=== PATIENT | female | born 1970 | race Asian ===

== ENCOUNTER 2018-11-01 08:28 | Inpatient (IN) | payer BC, OTHER ==
[~2018-11-01] VITALS: Ht 154.9 cm; Wt 101.0 kg
[~2018-11-01 08:28] MED LIST: ACET500T98 PO
[2018-11-01] MEDS ORDERED: HYDROCODONE/APAP (5/325) TAB PO ONE (09:00)
[2018-11-01] MEDS ORDERED: CEFAZOLIN 1 GM/50 ML (PMX) 50 ML IVPB SCH (09:30)
--- NOTE | 2018-11-01 09:43 | ERD ---
ER Documentation Chief Complaint Chief Complaint left forearm pain and deformity from a fall outstretched hand. good DP HPI 48-year-old entyn-ajqq-[id number] female presents the emergency department complaining of left upper extremity pain. Patient was in her usual state of health until just prior to arrival which time she excellently fell off a chair. Since then, she is been describing left forearm pain. She reports no numbness, tingling, loss of function. Patient reports no other traumatic complaints or medical complaints at this time. ROS All systems reviewed and are negative except as per history of present illness. Medications Home Meds Reported Medications Acetaminophen (Tylenol) 500 Mg Tab, 500 MG PO PRN 01/01/12 Allergies Allergies: Coded Allergies: No Known Allergies (Verified Allergy, Unknown, 12/06/11) PMhx/Soc History of Surgery: Yes (C SECTION, PRITESH CATH PLACEMENT ) Anesthesia Reaction: No Hx Neurological Disorder: No Hx Respiratory Disorders: No Hx Cardiac Disorders: Yes (HIGH CHOLESTEROL) Hx Psychiatric Problems: No Hx Miscellaneous Medical Probl: No Hx Alcohol Use: No Hx Substance Use: No Hx Tobacco Use: No Smoking Status: Never smoker FmHx Noncontributory for chief complaint with supportive family at bedside Physical Exam Vitals Vital Signs Date Temp Pulse Resp B/P (MAP) Pulse Ox O2 O2 Flow FiO2 Time Delivery Rate 11/01/18 66 136/75 99 Room Air 08:49 (95) 11/01/18 98.0 65 18 156/72 99 08:32 (100) Physical Exam General: Well developed, well nourished in no acute distress HEENT: Scalp atraumatic with no laceration or evidence of skull fracture; no signs of basilar skull fracture. Face symmetric, stable and atraumatic Neck: Full range of motion without discomfort or neurologic symptoms, no midline cervical spine tenderness, step-off, or evidence of significant trauma CV: Regular rate, rhythm, no murmurs appreciated Lungs: Clear to auscultation bilaterally with no chest wall trauma appreciated, chest wall stable with no crepitus Abdomen: Soft, atraumatic and non-tender in all 4 quadrants Extremities: Left upper extremity has significant tenderness to palpation at the midshaft forearm. Remainder of the extremities appear to be normal. On the left upper extremity, patient is neurovascular intact. Compartments soft and compressible. Patient is a 1 cm laceration over the apex of the fracture site with no active bleeding. Back: No thoracic or lumbar midline tenderness, no step-off or evidence of significant trauma Neurologic: Awake, alert and oriented, pupils equal, round and reactive to light, face symmetric, tongue midline, moving all extremities with equal and normal strength, sensory exam grossly non-focal Result Diagram: 11/01/18916 Results 24 hrs Laboratory Tests Test 11/01/18 09:17 White Blood Count 9.7 10^3/ul Red Blood Count 4.62 10^6/ul Hemoglobin 14.1 g/dl Hematocrit 41.5 % Mean Corpuscular Volume 89.8 fl Mean Corpuscular Hemoglobin 30.5 pg Mean Corpuscular Hemoglobin Concent 34.0 g/dl Red Cell Distribution Width 11.4 % Platelet Count 251 10^3/UL Mean Platelet Volume 10.5 fl Immature Granulocytes % 0.300 % Neutrophils % 67.7 % Lymphocytes % 23.7 % Monocytes % 6.9 % Eosinophils % 1.1 % Basophils % 0.3 % Nucleated Red Blood Cells % 0.0 /100WBC Immature Granulocytes # 0.030 10^3/ul Neutrophils # 6.6 10^3/ul Lymphocytes # 2.3 10^3/ul Monocytes # 0.7 10^3/ul Eosinophils # 0.1 10^3/ul Basophils # 0.0 10^3/ul Nucleated Red Blood Cells # 0.0 10^3/ul Current Medications Medications Dose Sig/Blu Start Time Status Last (Trade) Ordered Route PRN Stop Time Admin Dose Reason Admin 1 tab ONCE ONCE 11/01/18 DC 11/01/18 Acetaminophen PO 09:00 08:55 / 11/01/18 09:01 Hydrocodone Bitart ([place] (5/325)) Cefazolin 50 ml @ ONCE IVPB 11/01/18 11/01/18 Sodium 100 mls/hr 09:30 09:22 11/01/18 09:59 Ondansetron 4 mg BRIDGE ORDER 11/01/18 HCl (Zofran PRN IV 10:00 Inj) NAUSEA/VOMITI 11/02/18 09:59 NG 650 mg ER BRIDGE 11/01/18 Acetaminophen PRN PO 10:00 (Tylenol .MILD PAIN 11/02/18 09:59 Tab) 1-3 OR TEMP Procedures/MDM Patient was taken to a room, seen and evaluated. Comfort measures were initiated. Diagnostic tests were ordered and reviewed. 3 LEAD RHYTHM STRIP: Normal sinus rhythm without ectopy RADIOLOGY: Reviewed with the radiologist CONSULTATION: Hospitalist was notified for admission. Orthopedic consultation was obtained Procedure: Wound care Laceration was cleaned and a dressing was applied. Antibiotics were initiated. Procedure: Immobilization Patient was placed into a shoulder sling immobilizing the midshaft forearm REEVALUATION: Patient remained neurovascular intact with the pain adequately controlled MEDICAL DECISION MAKIN-year-old brujc-rggz-[id number] female presents with an open midshaft fracture of her left forearm. Patient's been prescribed pain medication and antibiotics. Patient will be admitted to the hospital for surgical washout and immobilization. Departure Diagnosis: Primary Impression: Open fracture of left forearm Condition: MARCO Stuart Nov 01, 2018 09:43
[2018-11-01] MEDS ORDERED: ONDANSETRON 4 MG INJ IV PRN (10:00)
[2018-11-01] MEDS ORDERED: ACETAMINOPHEN 325 MG TAB PO PRN (10:00)
[2018-11-01] MEDS ORDERED: METF500T24 PO (10:41)
[2018-11-01] MEDS ORDERED: CITA20TA8 PO (10:42)
[2018-11-01] MEDS ORDERED: PRAV40TA76 PO (10:42)
[2018-11-01] MEDS ORDERED: ERGO500013 PO (10:43)
[2018-11-01 11:30] VITALS: BP 128/59; RESP 17
--- NOTE | 2018-11-01 11:51 | PREOPHP ---
DATE OF ADMISSION: 11/01/2018 CHIEF COMPLAINT: Fall with left forearm pain. HISTORY OF PRESENT ILLNESS: A 48-year-old female with unremarkable past medical history except diet controlled type 2 diabetes mellitus, presented to Emergency Room with complaint of left forearm pain. The patient climbed up a chair that was broken. She had a ground level fall. Initial evaluation r evealed open left forearm fracture. There was a laceration that was clean and dressed in the Emergen cy Room. Antibiotics were initiated. Orthopedic consultation was requested. PAST MEDICAL HISTORY: Diet-controlled diabetes mellitus. PAST SURGICAL HISTORY: Status post . SOCIAL HISTORY: Patient lives at home. Her daughter was at the bedside. The patient denies tobacco or alcohol use. PHYSICAL EXAMINATION: GENERAL: Well-developed, well-nourished female who is in no apparent distress. VITAL SIGNS: Stable. She is afebrile. HEENT: Extraocular muscles intact. Pupils equal and reactive to light bilaterally. Sclerae are ani cteric. Oropharynx is clear and moist. NECK: Supple, no JVD, no carotid bruits. LUNGS: Clear to auscultation bilaterally. CARDIAC: Regular rate and rhythm. No murmurs or gallops. ABDOMEN: Soft, nontender, nondistended, normoactive bowel sounds. EXTREMITIES: Left upper extremity in sling. Mid forearm is quite tender to palpation. There was a 1 cm laceration over the area of the fracture. ASSESSMENT: 1. A 48-year-old female with open midshaft left forearm fracture. 2. Diet controlled type 2 diabetes mellitus. 3. Hyperlipidemia. PLAN: 1. Admit to med/surg. 2. Keep n.p.o. 3. Pain control. 4. Continue IV antibiotics. 5. Orthopedic follow up for surgical intervention. Dictated By: INESSA SERNA/PIERRE Conf#: [id number] DID#: [id number]
[2018-11-01 12:36] VITALS: Ht 154.9 cm; Wt 101.0 kg
[2018-11-01] MEDS: DEXTROSE 5%-0.45% NACL 1,000 ML IV SCH (13:02)
[2018-11-01] MEDS ORDERED: CEFAZOLIN 1 GM INJ IVPB SCH (14:00)
[2018-11-01 14:27] VITALS: BP 136/72; PULSE 74; RESP 18
[2018-11-01] MEDS: morphine 2 MG INJ IV PRN ×2 (14:29→22:31)
[2018-11-01] MEDS: CEFAZOLIN 1 GM/50 ML (PMX) 50 ML IVPB SCH ×2 (15:48→22:30)
--- NOTE | 2018-11-01 19:36 | CONS ---
Assessment/Plan Assessment/Plan Hospital Course (Demo Recall) 48-year-old female with history of diabetes type 2 and endometrial cancer sustained a type I both bone forearm fracture to the left forearm. Antibiotics were started in the emergency department. Her tetanus was updated. I discussed with the patient that she will need an irrigation debridement secondary to the open nature of the fracture and open reduction internal fixation of both the r adius and ulna. Given that this is a type I open fracture and was in a clean environment and antibiotics were started on arrival the case will be delayed till tomorrow morning secondary to or availability today. This should not pose any significant increased risks of infection. Discussed benefits and risks of open reduction internal fixation and irrigation debridement of the left open both bone forearm fracture with the patient. Risks include but not limited to medical complications, anesthetic complications, cardiopulmonary complications, infection, nonunion, malunion, hardware failure, neurovascular injury, need for repeat surgery, symptomatic hardware, and stiffness. She understood these benefits and risks and wished to proceed with surgery. Plan: Continue Ancef 2 g every 8 hours until 48 hours after surgery Skin splint left upper arm Ice Elevate Pain control N.p.o. at midnight Surgery 11/02 in the morning Assessment/Plan (Daily) Procedure: Long arm splint left upper extremity: The left upper extremity was wrapped in Webril followed by a posterior slab fiberglass splint immobilizing the wrist elbow and ending the proximal humerus. This was covered in Nicola wrap. Consultation Date/Type/Reason Admit Date/Time Nov 01, 2018 at 12:29 Date of Consultation: Nov 01, 2018 Reason for Consultation Open left both bone forearm fracture Date/Time of Note DATE: 11/01/18 TIME: 19:29 Hx of Present Illness 48-year-old female fell off a chair earlier today. She had severe pain and deformity and presented to the emergency department. She was found to have a left both bone forearm fracture. She was found to have an open area of the skin near the ulna. Antibiotics were started in the emergency department. Tetanus was updated. Patient denies numbness and tingling. Denies previous injury to this arm. Patient denies fever, chills, shortness of breath, chest pain, nausea/vomiting, constipation, diarrhea, numbness, and tingling. Past Medical History Diabetes mellitus type 2 Endometrial cancer status post hysterectomy and oophorectomy Home Meds Reported Medications Ergocalciferol (Vitamin D2) (VITAMIN D2) 50,000 Unit Capsule, 07240 UNIT PO Q SUN, CAP 11/01/18 Citalopram Hydrobromide* (Citalopram Hydrobromide*) 20 Mg Tablet, 20 MG PO DAILY, #30 TAB 11/01/18 Pravastatin Sodium* (Pravastatin Sodium*) 40 Mg Tablet, 40 MG PO HS, TAB 11/01/18 Metformin Hcl* (Metformin Hcl*) 500 Mg Tablet, 500 MG PO WITH BREAKFAST, #30 TAB 11/01/18 Discontinued Reported Medications Acetaminophen (Tylenol) 500 Mg Tab, 500 MG PO PRN 01/01/12 Medications Current Medications Ondansetron HCl (Zofran Inj) 4 mg BRIDGE ORDER PRN IV NAUSEA/VOMITING; Start 11/01/18 at 10:00; Stop 11/02/18 at 09:59 Acetaminophen (Tylenol Tab) 650 mg ER BRIDGE PRN PO .MILD PAIN 1-3 OR TEMP; St art 11/01/18 at 10:00; Stop 11/02/18 at 09:59 Dextrose/Sodium Chloride 1,000 ml @ 100 mls/hr Q10H IV Last administered on 11/01/18at 13:02; Admin Dose 100 MLS/HR; Start 11/01/18 at 12:00 Morphine Sulfate (morphine) 2 mg Q3H PRN IV moderate pain Last administered on 11/01/18at 14:29; Admin Dose 2 MG; Start 11/01/18 at 12:00 Cefazolin Sodium 50 ml @ 100 mls/hr Q8 IVPB Last administered on 11/01/18at 15:48; Admin Dose 100 MLS/HR; Start 11/01/18 at 14:00 Allergies: Coded Allergies: No Known Allergies (Verified Allergy, Unknown, 11/01/18) Past Surgical History Past Surgical Hx: noncontributory Family History Significant Family History: no pertinent family hx Social History Smoking Status: Never smoker Drug Use: none Exam/Review of Systems Exam Vitals Vital Signs Date Temp Pulse Resp B/P (MAP) Pulse Ox O2 O2 Flow FiO2 Time Delivery Rate 11/01/18 98.4 74 18 136/72 96 Room Air 14:27 (93) Exam General: Awake, alert, in no acute distress, pleasant and cooperative Heart: regular rhythm Lungs: breathing comfortably, no tachypnea or dyspnea MUSCULOSKELETAL: Left upper extremity: There is swelling of the extremity. There is gross deformity of the forearm. There is a small 3 mm wound over the ulnar aspect of the midforearm. There is no tenderness palpation of the elbow humerus or shoulder. No tenderness palpation of the wrist or hand. Tenderness palpation over the forearm. Sensation intact to light touch in a median, ulnar, radial, and axillary distribution. Motor is intact in a median, ulnar, radial, anterior interosseous, and posterior interosseous nerve distribution. Radial and ulnar artery are +2. Wrist extension and flexion are intact. Compartments are soft. Results Result Diagram: 11/01/18 0917 11/01/18 0917 Results 24hrs Laboratory Tests Test 11/01/18 09:17 White Blood Count 9.7 Red Blood Count 4.62 Hemoglobin 14.1 Hematocrit 41.5 Mean Corpuscular Volume 89.8 Mean Corpuscular Hemoglobin 30.5 Mean Corpuscular Hemoglobin Concent 34.0 Red Cell Distribution Width 11.4 L Platelet Count 251 Mean Platelet Volume 10.5 H Immature Granulocytes % 0.300 Neutrophils % 67.7 Lymphocytes % 23.7 Monocytes % 6.9 Eosinophils % 1.1 Basophils % 0.3 Nucleated Red Blood Cells % 0.0 Immature Granulocytes # 0.030 Neutrophils # 6.6 Lymphocytes # 2.3 Monocytes # 0.7 Eosinophils # 0.1 Basophils # 0.0 Nucleated Red Blood Cells # 0.0 Prothrombin Time 12.4 Prothrombin Time Ratio 1.0 INR International Normalized Ratio 0.91 Activated Partial Thromboplast Time 27.5 Sodium Level 143 Potassium Level 4.2 Chloride Level 104 Carbon Dioxide Level 30 Anion Gap 9 Blood Urea Nitrogen 15 Creatinine 0.59 Est Glomerular Filtrat Rate mL/min > 60 Glucose Level 125 Calcium Level 9.2 Imaging Imaging 3 views of the left wrist, 2 views of the left forearm, 3 views of the left elbow were personally reviewed. Wrist and elbow films are negative. Form film shows an acute 100% displaced midshaft fracture of the ulna and midshaft/proximal third shaft fracture of the radius. There is a couple centim eters of shortening. Medications Medication Current Medications Ondansetron HCl (Zofran Inj) 4 mg BRIDGE ORDER PRN IV NAUSEA/VOMITING; Start at 10:00; Stop 11/02/18 at 09:59 Acetaminophen (Tylenol Tab) 650 mg ER BRIDGE PRN PO .MILD PAIN 1-3 OR TEMP; Start 11/01/18 at 10:00; Stop 11/02/18 at 09:59 Dextrose/Sodium Chloride 1,000 ml @ 100 mls/hr Q10H IV Last administered on 11/01/18at 13:02; Admin Dose 100 MLS/HR; Start 11/01/18 at 12:00 Morphine Sulfate (morphine) 2 mg Q3H PRN IV moderate pain Last administered on 11/01/18at 14:29; Admin Dose 2 MG; Start 11/01/18 at 12:00 Cefazolin Sodium 50 ml @ 100 mls/hr Q8 IVPB Last administered on 11/01/18at 15:48; Admin Dose 100 MLS/HR; Start 11/01/18 at 14:00 JAKE BAILEY MD Nov 01, 2018 19:36
[2018-11-01 20:09] VITALS: BP 129/68; PULSE 70; RESP 16
[2018-11-02] VITALS (35 sets, daily range): BP systolic 114–157; BP diastolic 54–89; PULSE 82–104; RESP 16–26
[2018-11-02] MEDS: DEXTROSE 5%-0.45% NACL 1,000 ML IV SCH ×3 (00:15→18:00)
[2018-11-02] MEDS: CEFAZOLIN 1 GM/50 ML (PMX) 50 ML IVPB SCH (05:45)
--- NOTE | 2018-11-02 09:24 | HPN ---
Date/Time of Note Date/Time of Note DATE: 11/02/18 TIME: 09:23 Interval H&P Admission Note Pt. seen H&P reviewed: No system changes Patient denies fever, chills, shortness of breath, chest pain, nausea/vomiting, constipation, diarrhea, numbness, and tingling. MUSCULOSKELETAL: General: Awake, alert, in no acute distress, pleasant and cooperative Heart: regular rhythm Lungs: breathing comfortably, no tachypnea or dyspnea MUSCULOSKELETAL: Left upper extremity: Splint is intact. Sensation intact to light touch in a median, ulnar, radial, and axillary distribution. Motor is intact in a median, ulnar, radial, anterior interosseous, and posterior interosseous nerve distribution. Radial and ulnar artery are +2. Wrist extension and flexion are intact. Compartments are soft. JAKE BAILEY MD Nov 02, 2018 09:24
[2018-11-02] MEDS ORDERED: FENTAnyl 50 MCG/ML VIAL ONE (10:48)
[2018-11-02] MEDS ORDERED: MIDAZOLAM 1 MG/ML 2 ML INJ ONE (10:48)
[2018-11-02] MEDS ORDERED: PROPOFOL 20 ML ONE (10:48)
[2018-11-02] MEDS ORDERED: METOCLOPRAMIDE 10 MG INJ ONE (10:49)
[2018-11-02] MEDS ORDERED: ONDANSETRON 4 MG INJ ONE (10:49)
[2018-11-02] MEDS ORDERED: LACTATED RINGER'S 1,000 ML IV SCH (11:09)
--- NOTE | 2018-11-02 11:09 | PREAC ---
Date/Time of Note Date/Time of Note DATE: 11/02/18 TIME: 11:04 Anesthesia Eval and Record Evaluation Time Pre-Procedure Interview DATE: 11/02/18 TIME: 10:46 Age 48 Sex female NPO: 8 hrs Preoperative diagnosis lt. distal redius open fx., niddm, hi chol., s/p hyst. Planned procedure orif lt. distal radius fx. Past Medical History Past Medical History: Includes Cardio: Dyslipidemia Endo: Diabetes (niddm) : Other (s/p hyst.) Surgery & Anesthesia Issues No known issue Meds Anticoagulation: No Beta Azul within 24 hr: No Reason Beta Azul not given: Pt. not on B-Azul Reported Medications Ergocalciferol (Vitamin D2) (VITAMIN D2) 50,000 Unit Capsule, 68775 UNIT PO Q SUN, CAP 11/01/18 Citalopram Hydrobromide* (Citalopram Hydrobromide*) 20 Mg Tablet, 20 MG PO DAILY, #30 TAB 11/01/18 Pravastatin Sodium* (Pravastatin Sodium*) 40 Mg Tablet, 40 MG PO HS, TAB 11/01/18 Metformin Hcl* (Metformin Hcl*) 500 Mg Tablet, 500 MG PO WITH BREAKFAST, #30 TAB 11/01/18 Discontinued Reported Medications Acetaminophen (Tylenol) 500 Mg Tab, 500 MG PO PRN 01/01/12 Current Medications Dextrose/Sodium Chloride 1,000 ml @ 100 mls/hr Q10H IV Last administered on 11/02/18at 00:15; Admin Dose 100 MLS/HR; Start 11/01/18 at 12:00 Morphine Sulfate (morphine) 2 mg Q3H PRN IV moderate pain Last administered on 11/01/18at 22:31; Admin Dose 2 MG; Start 11/01/18 at 12:00 Cefazolin Sodium 50 ml @ 100 mls/hr Q8 IVPB Last administered on 11/02/18at 05:45; Admin Dose 100 MLS/HR; Start 11/01/18 at 14:00 Meds reviewed: Yes Allergies Coded Allergies: No Known Allergies (Verified Allergy, Unknown, 11/01/18) Allergies Reviewed: Yes Labs/Studies Labs Reviewed: Reviewed by anesthesiologist Result Diagram: 11/01/1891611/01/18916 Blood Bank Test 11/02/18 10:04 Antibody Screen NEGATIVE Blood Type O POSITIVE test: Negative Studies: ECG (n/a), CXR (n/a) Pre-procedure Exam Last vitals Vital Signs Date Temp Pulse Resp B/P (MAP) Pulse Ox O2 O2 Flow FiO2 Time Delivery Rate 11/02/18 98.7 85 16 130/83 96 07:39 (99) 11/01/18 Room Air 14:27 Airway: Adequate mouth opening, Adequate thyromental dist Mallampati: Mallampati II Teeth: Normal Lung: Normal Heart: Normal Anticipated Difficutly with IV: Anticipate Difficult IV Access ASA Physical Status ASA physical status: 3 Emergency: E Planned Anesthetic General/MAC: ETT Planned Pain Management Parenteral pain med, Local by surgeon Pre-operative Attestations Prior to commencing anesthesia and surgery, the patient was re-evaluated, there was verification of: *The patient's identity *The results of appropriate recent lab work and preoperative vital signs *The above evaluation not changing prior to induction *Anesthetic plan, risk benefits, alternative and complications discussed with patient/family; questions answered; patient/family understands, accepts and wishes to proceed. Welding Machine Operator used TAMIKO KELLER MD Nov 02, 2018 11:09
[2018-11-02] MEDS ORDERED: KETOROLAC 30 MG INJ IV PRN (11:30)
[2018-11-02] MEDS ORDERED: ONDANSETRON 4 MG INJ IV PRN (11:30)
[2018-11-02] MEDS ORDERED: HYDROmorphONE 1 MG/5 ML IV SYRINGE IV PRN ×3 (11:30)
[2018-11-02] MEDS ORDERED: OXYCODONE/ACETAMINOPHEN (5/325) TAB PO PRN ×2 (11:30)
[2018-11-02] MEDS ORDERED: KETOROLAC 60 MG INJ IM PRN (11:30)
[2018-11-02] MEDS ORDERED: KETOROLAC 15 MG INJ IV PRN (11:30)
[2018-11-02] MEDS ORDERED: POLYMYXIN/BACITRACIN 1L IRRIG ONE ×2 (11:32→15:17)
[2018-11-02] MEDS ORDERED: LABETALOL HCL 20MG INJ ONE ×2 (12:22→13:25)
[2018-11-02] MEDS ORDERED: NEOSTIGMINE 3 MG/3 ML SYRINGE ONE (15:13)
[2018-11-02] MEDS ORDERED: KETOROLAC 30 MG INJ ONE (15:15)
[2018-11-02] MEDS ORDERED: CEFAZOLIN 1 GM INJ ONE (15:17)
[2018-11-02] MEDS ORDERED: MAGNESIUM HYDROXIDE 30ML CUP PO PRN (16:00)
[2018-11-02] MEDS ORDERED: NACL 0.9% 3 ML SYG IV SCH (16:00)
[2018-11-02] MEDS ORDERED: oxyCODONE 5 MG TAB PO PRN ×2 (16:00)
[2018-11-02] MEDS ORDERED: HYDROmorphONE 1 MG/ML SYG IV PRN (16:00)
[2018-11-02] MEDS ORDERED: BISACODYL 10 MG SUPP PR PRN (16:00)
[2018-11-02] MEDS ORDERED: DIPHENHYDRAMINE 50 MG INJ IV PRN (16:00)
[2018-11-02] MEDS ORDERED: SENNA/DOCUSATE NA (8.6MG/50MG) TAB PO PRN (16:00)
[2018-11-02] MEDS ORDERED: NA PHOSPHATE/BIPHOS 133 ML ENEMA PR PRN (16:00)
[2018-11-02] MEDS ORDERED: NALOXONE (0.4 MG/ML) INJ IV PRN (16:00)
[2018-11-02] MEDS ORDERED: DOCUSATE SODIUM 100 MG CAP PO ONE (16:00)
--- NOTE | 2018-11-02 16:07 | PAC ---
Date/Time of Note Date/Time of Note DATE: 11/02/18 TIME: 16:07 Post-Anesthesia Notes Post-Anesthesia Note Last documented vital signs Vital Signs Date Temp Pulse Resp B/P (MAP) Pulse Ox O2 O2 Flow FiO2 Time Delivery Rate 11/02/18 100.0 83 19 94 Mask 15:51 Activity: WNL Respiratory function: WNL Cardiovascular function: WNL Mental status: Baseline Pain reasonably controlled: Yes Hydration appropriate: Yes Nausea/Vomiting absent: Yes TAMIKO KELLER MD Nov 02, 2018 16:07
[2018-11-02] MEDS ORDERED: CEFAZOLIN 2 GM/50 ML (PMX) 50 ML IVPB SCH (17:00)
--- NOTE | 2018-11-02 17:02 | OPR ---
Date/Time of Note Date/Time of Note DATE: 11/02/18 TIME: 16:35 Operative Report Procedure Date: Nov 02, 2018 Preoperative Diagnosis Type I open left both bone forearm fracture Postoperative Diagnosis As above Operation/Procedure Performed Irrigation debridement of skin, subcutaneous tissue, muscle, bone 3 x 4 cm Open reduction internal fixation left radius and ulnar shaft fractures Modifier 22 secondary to increased difficulty in time secondary to patient's BMI being greater than 40. Exposure and fracture reduction was significantly more difficult because of body habitus. Risks of neurovascular structures was increased secondary to difficult exposure and visualization. Application of short arm splint Surgeon see signature line Subassembly Assembler None Anesthesia Type: general Tourniquet Time: 160 minutes. Time split into 2 different periods Estimated Blood Loss: 10 - 50 ml's Transfusion none Specimen None Grafts/Implants Tawnya small frag VariAx plates: narrow 9 hole for ulna. narrow 7 hole for radius Vitoss bone graft Complications none Pt Condition Post Procedure: stable Disposition: PACU Procedure Description Indications and consent: Paz Paula is a 48-year-old female with history of diabetes mellitus type 2 and endometrial cancer status post hysterectomy and oophorectomy who fell yesterday off a chair when it broke and sustained a type I open both bone forearm fracture on the left. She presented to the emergency department. Antibiotics were given on arrival. Tetanus was updated. The wound was only 2 to 3 mm in size and was not grossly contaminated. The patient was neurovascular intact on arrival. There is discussed with the patient and family that she would require urgent irrigation debridement and open reduction internal fixation of her ulna and radius given the open nature of the fracture and the displacement. Benefits and risks reviewed with patient. Risks include but not limited to medical complications, anesthetic applications, infection, neurovascular injury, nonunion, malunion, hardware failure, hardware irritation, bleeding, need for revision surgery, and stiffness and pain. She understood these benefits and risks and wished to proceed with surgery. Ancef was being dosed every 8 hours from arrival. She was brought to the operating room the next morning for irrigation debridement and open reduction internal fixation. Procedure in detail: The patient was brought to the operating room. She is transfer the hospital bed to the operating table in supine position. She was then given general anesthetic by anesthesia. The left arm was placed on the hand table. A nonsterile tourniquet was placed on the upper left arm. The left arm was prepped and draped in normal sterile fashion. A timeout was performed confirming the patient's name, medical record number, diagnosis, procedure to be home, laterality. 2 g of Ancef was redosed. The extremity was exsanguinated with an Esmarch. The tourniquet was inflated 250 mmHg. Mini C-arm was used to localize both the radius and ulna fracture. These were marked out on the skin with a marking pen. This time the attention turned towards the open wound over the volar ulnar aspect of the midforearm. The wound was only 3 mm and size and was transverse. A 4 cm longitudinal incision was made. Skin and traumatized soft tissue were excised. This was debrided and irrigated down to the ulna. 1 L of normal saline irrigation was used using bulb irrigation. A long longitudinal incision over the ulna was marked out. There was significant comminution of the ulna with a longitudinal split distally. The skin was incised with a 10 blade followed by Bovie. The proximal and distal fragment of the ulna was identified. The FCU was elevated off the ulna subperiosteally. 1 L of normal saline was used to irrigate and debride the area using bulb irrigation. Combination of curette and sharp excision was used to clean the ends of the bone. It was difficult to reduce the ulna secondary to patient's body habitus and additional soft tissue and comminution of the fracture. The fracture was reduced using 2 lobster claws holding the 2 ends together. A [id number] reduction clamp was used to try to further reduce and hold the fracture together while placing a lag screw. Unfortunately secondary to significant comminution and longitudinal split the [id number] reduction clamp was not stable. A third lobster-claw was used to hold the fracture together. A 3.5 lag screw was placed by technique. This was placed in the ulnar to radial direction. Purchase was okay however the fracture remained unstable secondary to comminution. A second lag screw placed in the volar to dorsal direction was placed to attempt to hold the fracture better. This did help however the lag screws started become loose secondary to deforming forces and accommodation. At this time it was decided that the ulna fracture best be treated by bridge plating. A 9 hole narrow plate was placed on the volar aspect of the ulna. The plate was then compressed to bone using 3.5 nonlocking cortica l screws one proximal and one distal. An empty screw hole was placed over the fracture site. The plate was not placed on the compression secondary to comminution. The 3 holes proximal to the fracture were filled with 3.5 nonlocking cortical screws. 2 more distal screws were placed as well leaving an empty screw hole to allow for micromotion for bridge plating technique. The mu scle was very swollen and the fascia was very tight. Therefore elected to not close the fascia for fear of compartment syndrome. This obtains tissues were closed with 2-0 Vicryl and an inverted interrupted fashion. The skin was closed with jaylen. The same was done for the open fracture site. At this time attention was turned towards the radius fracture. A incision was marked out along the volar approach of Chas. This was centered over the fracture site marked using C-arm earlier in the case. General direction was from the lateral border of the biceps insertion to the radial styloid. The skin was incised with a #10 blade. Soft tissue was dissected using Bovie. Once encountering fascia a 10 blade was used to carefully incise the fascia. At this time Metzenbaums were used to bluntly dissect. The brachioradialis was retracted radially. The radial artery was identified and mobilized. The radial artery was carefully retracted ulnarly. The pronator teres was identified and subperiosteally lifted off the radial border of the radius. At this time the proximal distal fragments of the radius was identified. Copious irrigation with 1 L of normal saline with bulb irrigation was used. The fracture ends were cleaned with curettes and 15 blade. It was noticed that there is significant comminution again with a butterfly fragment. The fragment could not be found within the wound as it was quite displaced. The radius fracture was quite proximal on the shaft therefore further dissection proximally was required. Care was taken to subperiosteally elevate the supinator muscle with the arm in full supination to move the PIN away from the surgical field. This was done with great care. The nerve was never itself identified. This time the fracture was reduced. The reduced anatomically. Even though there was comminution there is good cortical contact with a transverse segment. A 7 hole narrow plate was placed on the volar aspect of the radius. The plate sat very nicely. A 3 5 cortical screw was placed in the distal fragment through the plate. This was followed by a 3.5 mm screw placed in the proximal fragment and compression mode. The fracture compressed very nicely. At this time the remainder screw holes were filled both proximally and distally the total of 3 screws proximal and 3 screws distal. Vitoss bone graft was used to fill in the bone void from the comminution of the radius. At this time the tourniquet was deflated. Hemostasis was obtained. The radial pulse could be palpated. Again the muscles and deep tissues were significantly swollen. Therefore only the subcutaneous tissue was closed. This was closed with 2-0 Vicryl with an inverted interrupted fashion. The skin was closed with jaylen. All wounds were covered with Xeroform followed by 4 x 4's and ABDs. The arm was then wrapped in web roll and the patient was placed in a volar slab plaster splint covered with Nicola wrap. All counts were correct x2 Disposition: Patient was transferred to PACU in stable condition. Once the patient was awoken the patient was neurovascular intact on examination. Sensation intact to light touch in a median, ulnar, radial, and axillary distribution. Motor is intact in a median, ulnar, radial, anterior interosseous, and posterior interosseous nerve distribution. Compartments are soft. The patient will remain on IV antibiotics for 48 hours, 2 g Ancef every 8 hours, secondary to open fracture. The patient will remain nonweightbearing of the left upper extremity. She should keep it elevated and ice it. After the antibiotic she completed the patient can be discharged home and follow-up with me in 2 weeks. JAKE BAILEY MD Nov 02, 2018 16:51
[2018-11-02] MEDS: LACTATED RINGER'S 1,000 ML IV SCH (18:00)
[2018-11-02] MEDS: CEFAZOLIN 2 GM/50 ML (PMX) 50 ML IVPB SCH (20:44)
[2018-11-02] MEDS: GABAPENTIN 300 MG CAP PO SCH (20:44)
[2018-11-02] MEDS: ACETAMINOPHEN 500 MG TAB PO SCH (21:38)
[2018-11-03 01:33] VITALS: BP 122/67; PULSE 95; RESP 18
[2018-11-03] MEDS: CEFAZOLIN 2 GM/50 ML (PMX) 50 ML IVPB SCH ×3 (03:47→20:42)
[2018-11-03] MEDS: DEXTROSE 5%-0.45% NACL 1,000 ML IV SCH (04:00)
[2018-11-03] MEDS: LACTATED RINGER'S 1,000 ML IV SCH (04:15)
[2018-11-03] MEDS: ACETAMINOPHEN 500 MG TAB PO SCH ×3 (05:43→22:19)
[2018-11-03 07:59] VITALS: BP 131/75; PULSE 99; RESP 20
[2018-11-03] MEDS: DOCUSATE SODIUM 100 MG CAP PO SCH ×2 (08:04→20:30)
[2018-11-03] MEDS ORDERED: CEPH-443 PO (08:53)
[2018-11-03] MEDS ORDERED: HYDR-4011 PO (08:53)
--- NOTE | 2018-11-03 08:55 | PDOCDIS ---
Discharge Instructions CONDITION [id number] Patient Condition: [id number] Good HOME CARE INSTRUCTIONS: [id number] Special Diet: Qsvfo4e diabetic ACTIVITY: [id number] Activity Restrictions: [id number] No Weight Bearing [id number] Activity Restrictions Comment: [id number] GUO FOLLOW UP/APPOINTMENTS Follow-up Plan pcp [address] Hendrix 1 week INESSA VARGAS MD Nov 03, 2018 08:55
--- NOTE | 2018-11-03 10:28 | PN ---
Date/Time of Note Date/Time of Note DATE: 11/03/18 TIME: 10:26 Subjective Doing well. Pain is well controlled. Objective Vitals Vital Signs Date Temp Pulse Resp B/P (MAP) Pulse Ox O2 O2 Flow FiO2 Time Delivery Rate 11/03/18 99.1 99 20 131/75 93 Room Air 07:59 (93) 11/02/18 3.0 22:00 Intake and Output 11/02/18 11/02/18 11/03/18 1515:00 23:00 07:00 IntakeIntake Total 340 ml 1130 ml OutputOutput Total 100 ml BalanceBalance 240 ml 1130 ml Clear to auscultation bilaterally Regular rate and rhythm Soft nontender nondistended normoactive bowel sounds Left upper extremity with clean dressing Nonfocal Results Result Diagram: 11/03/1851711/03/18517 Medications Medications Current Medications IV Flush (NS 3 ml) 3 ml PER PROTOCOL IV ; Start 11/02/18 at 16:00 Oxycodone HCl (Roxicodone) 15 mg Q4H PRN PO .PAIN; Start 11/02/18 at 16:00 Oxycodone HCl (Roxicodone) 10 mg Q4H PRN PO .PAIN; Start 11/02/18 at 16:00 Oxycodone HCl (Roxicodone) 5 mg Q4H PRN PO .PAIN; Start 11/02/18 at 16:00 Hydromorphone HCl (Dilaudid) 1 mg Q3H PRN IV .BREAKTHROUGH PAIN Last administered on 11/02/18at 17:57; Admin Dose 1 MG; Start 11/02/18 at 16:00 Acetaminophen (Tylenol Tab) 1,000 mg Q8 PO Last administered on 11/03/18at 05:43; Admin Dose 1,000 MG; Start 11/02/18 at 22:00 Ondansetron HCl (Zofran Inj) 4 mg Q4H PRN IV NAUSEA/VOMITING; Start 11/03/18 at 16:00 Gabapentin (Neurontin) 300 mg QHS PO Last administered on 11/02/18at 20:44; Admin Dose 300 MG; Start 11/02/18 at 21:00 Pantoprazole (Protonix Tab) 40 mg DAILY@06 PO ; Start 11/04/18 at 06:00 Docusate Sodium (Colace) 200 mg BID PO Last administered on 11/03/18at 08:04; Admin Dose 200 MG; Start 11/03/18 at 09:00; Stop 11/06/18 at 08:59 Simethicone (Mylicon) 80 mg TID PRN PO .GAS; Start 11/02/18 at 16:00 Senna/Docusate Sodium (Senokot-S) 2 tab BID PRN PO .CONSTIPATION; Start 11/02/18 at 16:00 Magnesium Hydroxide (Milk Of Mag) 30 ml HS PRN PO .CONSTIPATION; Start 11/02/18 at 16:00 Bisacodyl (Dulcolax Supp) 10 mg DAILY PRN OR .CONSTIPATION; Start 11/02/18 at 16:00 Sodium Biphosphate/ Sodium Phosphate (Fleet Enema) 133 ml DAILY PRN OR .CONSTIPATION; Start 11/02/18 at 16:00 Diphenhydramine HCl (Benadryl) 25 mg Q4H PRN IV .ITCHING; Start 11/02/18 at 16:00 Naloxone HCl (Narcan) 0.2 mg Q2M PRN IV .RESP RATE; Start 11/02/18 at 16:00 Cefazolin Sodium/ Dextrose 50 ml @ 100 mls/hr Q8H IVPB Last administered on 11/03/18at 03:47; Admin Dose 100 MLS/HR; Start 11/02/18 at 20:00; Stop 11/04/18 at 12:29 VTE Prophylaxis Risk score (from Nsg)>0 risk: 9 SCD applied (from Nsg): Yes Lines/Catheters IV Catheter Type: Saline Lock Potter in Place: No Assessment/Plan Assessment/Plan 48-year-old female with open left forearm fracture involving both bones Postop day #1 irrigation of the wound and ORIF Type 2 diabetes mellitus History of endometrial cancer, status post hysterectomy Continue IV Ancef for additional day Pain control Discharge planning in a.m. Case was discussed with INESSA Belle MD Nov 03, 2018 10:28
--- NOTE | 2018-11-03 10:40 | PN ---
Date/Time of Note Date/Time of Note DATE: 11/03/18 TIME: 10:36 Assessment/Plan Lines/Catheters IV Catheter Type (from Nrsg): Saline Lock Potter in Place (from Nrsg): No Assessment/Plan Chief Complaint/Hosp Course 48-year-old female postop day #1 status post open reduction internal fixation Type I left open both bone forearm fracture. There was concern during surgery that there was injury to the superficial radial nerve. Immediate postoperative neurological examination the patient said she was able to feel gross sensation over the superficial radial nerve distribution. However later in the day she complained of the nurses that she did have numbness over that area. This morning she does have significant decreased sensation over the dorsal aspect of her thumb and radial aspect of her hand. The initial postoperative examination likely was inaccurate given her recent anesthesia. Her motor function is intact throughout the hand. At this time we will continue to monitor. Plan: Continue IV antibiotics for total 48 hours after surgery. 2 g Ancef every 8 hours. Elevation Ice Nonweightbearing left upper extremity Okay to discharge from orthopedic perspective after completion of IV antibiotics. Follow-up in clinic in 2 weeks. Subjective 24 Hr Interval Summary Patient doing well No acute events overnight. Patient does complain of numbness over the thumb. Pain is well controlled Exam/Review of Systems Vital Signs Vitals Vital Signs Date Temp Pulse Resp B/P (MAP) Pulse Ox O2 O2 Flow FiO2 Time Delivery Rate 11/03/18 99.1 99 20 131/75 93 Room Air 07:59 (93) 11/02/18 3.0 22:00 Intake and Output 11/02/18 11/02/18 11/03/18 1515:00 23:00 07:00 IntakeIntake Total 340 ml 1130 ml OutputOutput Total 100 ml BalanceBalance 240 ml 1130 ml Exam Free Text/Dictation General: Awake, alert, in no acute distress, pleasant and cooperative Heart: regular rhythm Lungs: breathing comfortably, no tachypnea or dyspnea MUSCULOSKELETAL: Left upper extremity: Splint is clean dry and intact. Sensation is grossly decreased to radial nerve distribution. Sensation intact to light touch in a median, ulnar, axillary distribution. Motor is intact in a median, ulnar, radial, anterior interosseous, and posterior interosseous nerve distribution. Radial and ulnar artery are +2. Wrist extension and flexion are intact. Compartments are soft. Results Result Diagram: 11/03/18 0518 11/03/18 0518 JAKE BAILEY MD Nov 03, 2018 10:40
[2018-11-03] MEDS: oxyCODONE 5 MG TAB PO PRN ×2 (11:16→16:58)
[2018-11-03 14:40] VITALS: BP 131/77; PULSE 65; RESP 20
[2018-11-03] MEDS ORDERED: ONDANSETRON 4 MG INJ IV PRN (16:00)
[2018-11-03] MEDS: GABAPENTIN 300 MG CAP PO SCH (20:30)
[2018-11-03 20:34] VITALS: BP 127/66; PULSE 95; RESP 18
[2018-11-04 01:44] VITALS: BP 130/78; PULSE 100; RESP 18
[2018-11-04] MEDS: CEFAZOLIN 2 GM/50 ML (PMX) 50 ML IVPB SCH ×2 (03:47→11:25)
[2018-11-04] MEDS ORDERED: PANTOPRAZOLE (EC) 40 MG TAB PO SCH (06:00)
[2018-11-04] MEDS: ACETAMINOPHEN 500 MG TAB PO SCH (06:12)
[2018-11-04 08:00] VITALS: BP 112/58; PULSE 86; RESP 18
[2018-11-04] MEDS: oxyCODONE 5 MG TAB PO PRN (09:21)
[2018-11-04] MEDS: DOCUSATE SODIUM 100 MG CAP PO SCH (09:21)
--- NOTE | 2018-11-04 13:57 | DS ---
DATE OF ADMISSION: 11/01/2018 DATE OF DISCHARGE: 11/04/2018 DISCHARGE DIAGNOSES: 1. A 48-year-old female with left open forearm fracture. 2. Status post open reduction and internal fixation of type 1 left open both bone forearm fracture. 3. Diet controlled type 2 diabetes mellitus. 4. History of endometrial cancer status post hysterectomy. 5. Moderate obesity. HOSPITAL COURSE: A 48-year-old female suffered a ground level fall and developed open left forearm b oth bone fracture. Following admission to the hospital, she was started on IV Ancef. The patient wa s seen in consultation by . She was taken to the operating room and underwent irrigation fo llowed by open reduction internal fixation of left forearm fracture. There were no complications. I V Ancef was continued for 48 hours postoperatively. The patient is now in a stable condition for discharge. I encouraged her to lose weight and adhere t o a diabetic diet. MEDICATIONS ON DISCHARGE: 1. [place] 5/325 one tablet every 4 hours as needed #20. 2. Citalopram 20 mg daily. 3. Metformin 500 mg daily. 4. Pravastatin 40 mg at bedtime. FOLLOWUP: 1. With PCP in 1 week. 2. Follow up with Dr. in 2 weeks. Dictated By: INESSA SERNA/PIERRE Conf#: [id number] DID#: [id number] CC: JAKE BAILEY;*EndCC*
== END 2018-11-04 12:35 | disposition home or self-care (01) | DRG 511 ==
LOC: E/R 08:28 → 2NE 12:29
PROVIDERS: ADMIT Internal Medicine; ATTEND Internal Medicine
PROC: 0PSL04Z Reposition Left Ulna with Internal Fixation Device, Open Approach (ICD-10-PCS; 2018-11-02)
PROC: 0PSJ04Z Reposition Left Radius with Internal Fixation Device, Open Approach (ICD-10-PCS; principal; 2018-11-02 10:00)
DX: S52.92XB Unspecified fracture of left forearm, initial encounter for open fracture type I or II (principal); Z68.41 Body mass index [BMI] 40.0-44.9, adult; E11.8 Type 2 diabetes mellitus with unspecified complications; E66.9 Obesity, unspecified; E78.5 Hyperlipidemia, unspecified; W07.XXXA Fall from chair, initial encounter
CPT/HCPCS: 36415; 73090; 80048; 82962; 85025; 85610; 85730; 86850; 86900; 86901; 96374; C1713; J0690; J1170; J1885; J2250; J2270; J2405; J2710; J2765; J3010; J7042; J7120